=== PATIENT | male | born 1995 | race Caucasian/White ===

== ENCOUNTER 2017-08-23 09:30 | Emergency (ER) | payer BC, OTHER ==
[2017-08-23 11:27] LABS: BASO % 0.6 % (0.0-1.0); EOS # 0.1 10^3/uL (0.0-0.50); EOS % 1.3 % (0.0-3.0); HEMATOCRIT 46.1 % (42.0-52.0); HEMOGLOBIN 15.6 g/dl (13.5-17.5); IMMATURE GRANULOCYTE % 0.2 % (0-3.0); LYMPH # 1.4 10^3/uL (1.5-6.5); LYMPH % 21.5 % (24.0-44.0); MEAN CORPUSCULAR HEMOGLOBIN 30.4 pg (27.0-33.0); MEAN CORPUSCULAR HGB CONC 33.8 g/dl (32.0-36.5); MEAN CORPUSCULAR VOLUME 89.7 fl (80.0-96.0); MONO # 0.4 10^3/uL (0.0-0.8); NEUTROPHILS # 4.4 10^3/uL (1.8-7.7); NEUTROPHILS % 69.4 % (36.0-66.0); PLATELET COUNT, AUTOMATED 259 10^3/uL (150-450); RED BLOOD COUNT 5.14 10^6/uL (4.30-6.10); RED CELL DISTRIBUTION WIDTH 12.8 % (11.5-14.5); WHITE BLOOD COUNT 6.3 10^3/uL (4.0-10.0)
[2017-08-23 11:39] LABS: D-DIMER QUANT 310.5 ng/ml (<500)
[2017-08-23 11:50] LABS: CK-MB VALUE MASS < 1.0 NG/ML (<3.6); CPK CREATINE PHOSPHOKINASE 81 U/L (39-308); MB/CK RELATIVE INDEX 1.23 (< OR =4); TROPONIN I < 0.02 NG/ML (< 0.10)
== END 2017-08-23 13:12 | disposition home or self-care (01) ==
LOC: M ED 09:30
DX: R07.89 Other chest pain (principal); R00.1 Bradycardia, unspecified; Z82.49 Family history of ischemic heart disease and other diseases of the circulatory system
CPT/HCPCS: 71046

== ENCOUNTER → 2018-06-03 | Outpatient (CLI) | payer BC, OTHER ==
[~2018-06-03] MED LIST: NORC1TAB4 PO
--- NOTE | 2018-06-03 12:22 | REP ---
Clinical: Right sternoclavicular joint pain. Technique: Axial noncontrast images from the lower neck through the thoracic inlet/upper hemithorax with coronal and sagittal re-formations as well as 3-D post processing images of the osseous structures. Findings: The bilateral clavicles including sternoclavicular joints and acromioclavicular joints are symmetric and normal. Remainder of the visualized osseous structures are intact and normal. Surrounding soft tissues are symmetric and normal. Visualized lung shelley are clear. Impression: Normal examination with normal appearance to the bilateral sternoclavicular joints. Electronically Signed by Patrick Douglas MD 06/03/2018 12:13 P
== END ==
LOC: M RAD 11:16
PROVIDERS: ATTEND Orthopaedic Surgery Sports Medicine
DX: S43.61XA Sprain of right sternoclavicular joint, initial encounter (principal); S29.001A Unspecified injury of muscle and tendon of front wall of thorax, initial encounter; X58.XXXA Exposure to other specified factors, initial encounter; Y99.9 Unspecified external cause status; Y93.9 Activity, unspecified; Y92.9 Unspecified place or not applicable

== ENCOUNTER 2018-11-09 19:27 | Emergency (ER) | payer BC, OTHER ==
[~2018-11-09] VITALS: Ht 182.9 cm; Wt 87.3 kg
[~2018-11-09 19:27] MED LIST changes: -NORC1TAB4 PO; +NORC1TAB7 PO
[2018-11-09] MEDS ORDERED: ACETAMINOPHEN 325 MG TAB PO ONE (20:15)
[2018-11-09 21:07] LABS: MONO SCRN NEGATIVE (NEGATIVE)
[2018-11-09 21:20] LABS: INFLUENZA A AMPLIFICATION NEGATIVE (NEGATIVE); INFLUENZA B AMPLIFICATION NEGATIVE (NEGATIVE)
[2018-11-09 22:19] VITALS: BP 128/70
[2018-11-09] MEDS ORDERED: AUGM875T28 PO (22:26)
[2018-11-09] MEDS ORDERED: AUGMENTIN 875 MG TAB PO ONE (22:45)
--- NOTE | 2018-11-10 08:14 | REP ---
Clinical: Cough and fever . Comparison: 08/23/2017 . Technique: PA and lateral. Findings: The mediastinum and cardiac silhouette are normal. The lung shelley are clear and without acute consolidation, effusion, or pneumothorax. The skeletal structures are intact and normal. Impression: 1. No acute cardiopulmonary process. Electronically Signed by Patrick Douglas MD 11/10/2018 08:06 A
== END 2018-11-09 22:44 | disposition home or self-care (01) ==
LOC: M ED 19:27
DX: J31.0 Chronic rhinitis (principal)

== ENCOUNTER 2018-12-23 13:05 | Emergency (ER) | payer BC, OTHER ==
[~2018-12-23] VITALS: Ht 182.9 cm; Wt 85.5 kg
[~2018-12-23 13:05] MED LIST changes: +AUGM875T28 PO
[2018-12-23] MEDS ORDERED: ACET160S3 PO (13:11)
[2018-12-23] MEDS ORDERED: IBUPROFEN 100 MG/5 ML SUSP UDC DYE FREE PO ONE (13:30)
[2018-12-23] MEDS ORDERED: CLINDAMYCIN 150 MG CAP PO ONE (13:30)
[2018-12-23] MEDS ORDERED: predniSONE 5MG/5ML SOLN ORAL SYRINGE PO ONE (13:30)
[2018-12-23] MEDS ORDERED: prednisoLONE (PRELONE) 15MG/5ML SYRUP UDC PO ONE (13:45)
[2018-12-23 13:53] LABS: BASO % 0.2 % (0.0-1.0); EOS % 0.3 % (0.0-3.0); LYMPH # 1.2 10^3/uL (1.5-5.0); LYMPH % 9.4 % (24.0-44.0); MEAN CORPUSCULAR HEMOGLOBIN 29.2 pg (27.0-33.0); MEAN CORPUSCULAR HGB CONC 33.3 g/dl (32.0-36.5); MEAN CORPUSCULAR VOLUME 87.7 fl (80.0-96.0); MONO # 1.3 10^3/uL (0.0-0.8); MONO % 10.6 % (0.0-5.0); NEUTROPHILS # 9.9 10^3/uL (1.5-8.5); NEUTROPHILS % 79.2 % (36.0-66.0); PLATELET COUNT, AUTOMATED 310 10^3/uL (150-450); RED BLOOD COUNT 4.79 10^6/uL (4.30-6.10); WHITE BLOOD COUNT 12.5 10^3/uL (4.0-10.0)
[2018-12-23 14:16] LABS: BLOOD UREA NITROGEN 8 MG/DL (7-18); CALCIUM LEVEL 9.3 MG/DL (8.5-10.1); CARBON DIOXIDE LEVEL 29 MEQ/L (21-32); CHLORIDE LEVEL 98 MEQ/L (98-107); CREATININE FOR GFR 1.04 MG/DL (0.70-1.30); GLOMERULAR FILTRATION RATE > 60.0 (>60); GLUCOSE, FASTING 91 MG/DL (70-100); POTASSIUM SERUM 4.4 MEQ/L (3.5-5.1); SODIUM LEVEL 135 MEQ/L (136-145)
[2018-12-23 14:19] LABS: MONO SCRN NEGATIVE (NEGATIVE)
[2018-12-23] MEDS ORDERED: PRED20TA PO (15:08)
[2018-12-23] MEDS ORDERED: CLEO300C2 PO (15:08)
[2018-12-23 15:15] VITALS: BP 135/70
== END 2018-12-23 15:22 | disposition home or self-care (01) ==
LOC: M ED 13:05
DX: J03.90 Acute tonsillitis, unspecified (principal)

== ENCOUNTER 2020-01-11 17:49 | Emergency (ER) | payer BC, OTHER ==
[~2020-01-11] VITALS: Ht 182.9 cm; Wt 88.9 kg
[~2020-01-11 17:49] MED LIST changes: +ACET160S3 PO; +CLEO300C2 PO; +PRED20TA PO
[2020-01-11] MEDS ORDERED: CYCL-707 PO (20:26)
[2020-01-11] MEDS ORDERED: ZITHTAB PO (20:26)
[2020-01-11] MEDS ORDERED: NAPR-837 PO (20:27)
[2020-01-11] MEDS ORDERED: AZITHROMYCIN 250MG TABLET PO ONE (20:30)
[2020-01-11 21:00] VITALS: BP 144/82
[2020-01-11] MEDS ORDERED: CYCLOBENZAPRINE 10MG TABLET PO ONE (21:15)
== END 2020-01-11 21:10 | disposition home or self-care (01) ==
LOC: M ED 17:49
DX: J20.9 Acute bronchitis, unspecified (principal); M62.838 Other muscle spasm; Z79.899 Other long term (current) drug therapy